=== PATIENT | male | born 1950 | race African-American/Black ===

== ENCOUNTER 2016-06-25 10:20 | Inpatient (IN) | payer OTHER ==
[~2016-06-25] VITALS: Ht 167.6 cm; Wt 118.0 kg
[~2016-06-25 10:20] MED LIST: ADULT LOW DOSE81 M1 PO; AMLODIPINE BESY10 MG PO; ASPIR-LOW81 MG PO; AUGMENTIN875 MG PO; Apresoline PO; Aspirin E.C. PO; BESIVANCE5 ML LEFT EYE; BESIVANCE5 ML OP; CALCIUM ACETAT667 MG PO; CLARITIN,ALAVAR10 MG PO; GENTAMICIN SULF30 GM; KETOROLAC 0.5% LEFT EYE; KETOROLAC TROMET5 ML LEFT EYE; LIPITOR20 MG PO; LO-DOSE ASPIRIN81 M1 PO; LOPRESSOR25 MG PO; Lopressor PO; METOPROLOL SUCC50 MG PO; NEPHRO-VITE,1 TABLET PO; NEURONTIN300 MG PO; NORVASC10 MG PO; NORVASC5 MG PO; Nephro-Vite,Rena-Vit PO; Norvasc PO; OMEPRAZOLE20 M2 PO; PHOSLYRA667 MG/5 M PO; PLAVIX75 MG PO; PRED FORTE100 DROP/5 LEFT EYE; PRILOSEC OTC20 M1 PO; PRILOSEC20 MG PO; Phoslo PO; Pred Forte 1%,Omnipr LEFT EYE; RENVELA2.4 GM PO; RENVELA800 MG PO; SENSIPAR30 MG PO; Sensipar PO; TYLENOL ARTHRI650 M2 PO; VICODIN,LORT1 TABLET PO; Vicodin; ZEMPLAR5 MCG/ML IV; Zantac PO
[2016-06-25 12:04] LABS: HEMATOCRIT 41.2 % (38.0-50.0); MCH 30.7 PG (29.0-34.0); MCHC 32.3 G/DL (30.0-36.0); MCV 95.2 FL (86-99); MEAN PLAT.VOLUME 12.1 uM^3 (9.0-12.4); PLATELET COUNT 203 K/uL (156-360); RBC DIS.WIDTH-CV 15.4 % (11.8-14.6); RBC DIS.WIDTH-SD 51.3 % (39-53); RED BLOOD COUNT 4.33 M/uL (4.00-5.50); WHITE BLOOD COUNT 9.4 K/uL (4.1-10.2)
[2016-06-25 12:17] LABS: CHLORIDE 97 mEq/L (99-109); POTASSIUM 5.9 mEq/L (3.7-5.4); SODIUM 139 mEq/L (136-147)
[2016-06-25 12:19] LABS: GLUCOSE 153 mg/dL (70-99)
[2016-06-25 12:20] LABS: ANION GAP 22 MEQ/L (2-14)
[2016-06-25 12:23] LABS: GFR ESTIMATE (CALCULATED) 5 mL/min/; UREA NITROGEN (BUN) 64 mg/dL (9-23)
[2016-06-25 12:27] LABS: TROP-I INTERPRETATION NEGATIVE; TROPONIN-I 0.25 ng/mL (0.0-0.30)
[2016-06-25] MEDS ORDERED: ATORVASTATIN CA20 MG PO (13:43)
[2016-06-25] MEDS ORDERED: PLAVIX75 MG PO (13:43)
[2016-06-25] MEDS ORDERED: ADVIL200 MG PO (13:44)
[2016-06-25] MEDS ORDERED: LOPRESSOR25 MG PO (13:44)
[2016-06-25 19:37] VITALS: BP 120/57
[2016-06-25 21:09] VITALS: BP 90/50
[2016-06-25 21:16] LABS: TROP-I INTERPRETATION NEGATIVE; TROPONIN-I 0.27 ng/mL (0.0-0.30)
[2016-06-26] VITALS (7 sets, daily range): BP systolic 78–123; BP diastolic 45–64
[2016-06-26 05:39] LABS: HEMATOCRIT 37.9 % (38.0-50.0); MCH 29.2 PG (29.0-34.0); MCHC 30.1 G/DL (30.0-36.0); MCV 97.2 FL (86-99); MEAN PLAT.VOLUME 12.1 uM^3 (9.0-12.4); PLATELET COUNT 173 K/uL (156-360); RBC DIS.WIDTH-CV 15.8 % (11.8-14.6); RBC DIS.WIDTH-SD 55.8 % (39-53); WHITE BLOOD COUNT 7.4 K/uL (4.1-10.2)
[2016-06-26 05:57] LABS: ANION GAP 18 MEQ/L (2-14); CHLORIDE 100 MEQ/L (99-109); GFR ESTIMATE (CALCULATED) 9 mL/min/; GLUCOSE 202 mg/dL (70-99); POTASSIUM 4.8 MEQ/L (3.7-5.4); SAMPLE HEMOLYSIS CHECK 0; SAMPLE ICTERIC CHECK 0; SAMPLE LIPEMIA CHECK 0; SODIUM 137 MEQ/L (136-147); UREA NITROGEN (BUN) 38 mg/dL (9-23)
[2016-06-26 05:58] LABS: TROP-I INTERPRETATION NEGATIVE; TROPONIN-I 0.25 ng/mL (0.0-0.30)
[2016-06-26 22:22] LABS: POINT-OF-CARE METER ID UU13113725
[2016-06-27 02:44] VITALS: BP 117/61
[2016-06-27 07:21] LABS: ALKALINE PHOSPHATASE 56 IU/L (3-129); ANION GAP 20 MEQ/L (2-14); CHLORIDE 99 MEQ/L (99-109); GFR ESTIMATE (CALCULATED) 7 mL/min/; GLUCOSE 127 mg/dL (70-99); SAMPLE HEMOLYSIS CHECK 0; SAMPLE ICTERIC CHECK 0; SAMPLE LIPEMIA CHECK 0; SODIUM 141 MEQ/L (136-147); TOTAL BILIRUBIN 0.7 MG/DL (0.0-1.0); UREA NITROGEN (BUN) 47 mg/dL (9-23)
[2016-06-27 09:07] LABS: EOSINOPHIL (%) 1.1 % (0-5); EOSINOPHIL COUNT 0.1 K/uL (0-0.3); IMMATURE GRANULOCYTE (%) 0.4 % (0.0-0.7); LYMPHOCYTE COUNT 1.4 K/uL (1.0-2.8); MCH 29.7 PG (29.0-34.0); MCHC 30.8 G/DL (30.0-36.0); MCV 96.4 FL (86-99); MEAN PLAT.VOLUME 12.5 uM^3 (9.0-12.4); MONOCYTE (%) 11.2 % (3-12); MONOCYTE COUNT 1.2 K/uL (0-0.8); NEUTROPHIL (%) 73.2 % (45-76); NEUTROPHIL COUNT 7.6 K/uL (1.8-6.4); PLATELET COUNT 173 K/uL (156-360); RBC DIS.WIDTH-SD 55.4 % (39-53); RED BLOOD COUNT 3.84 M/uL (4.00-5.50); WHITE BLOOD COUNT 10.4 K/uL (4.1-10.2)
[2016-06-27 12:11] VITALS: BP 116/63
[2016-06-27 15:03] LABS: BASE EXCESS -2.8 mEq/L (-3 to +3); CARBOXY HGB 2.1 % (0-5); METHEMOGLOBIN 1.5 % (0-1.5); PO2 53 mm Hg (80-100); pH 7.44 (7.35-7.45)
[2016-06-27 15:04] LABS: BICARBONATE 20.4 mEq/L (22-26); COMMENTS - BLOOD GASES NEG A+C+; PCO2 30 mm Hg (35-45); SITE RR
[2016-06-27 15:05] LABS: DEVICE ROOM AIR; TOTAL RESP RATE 23 resp/min
[2016-06-27 16:07] VITALS: BP 112/68
[2016-06-27 19:38] VITALS: BP 132/66
[2016-06-27 20:57] LABS: POINT-OF-CARE METER ID UU13113725
[2016-06-27 22:49] VITALS: BP 121/64
[2016-06-28 03:15] VITALS: BP 110/56
[2016-06-28 06:50] LABS: EOSINOPHIL COUNT 0.1 K/uL (0-0.3); HEMATOCRIT 36.3 % (38.0-50.0); IMMATURE GRANULOCYTE (%) 0.3 % (0.0-0.7); LYMPHOCYTE COUNT 1.6 K/uL (1.0-2.8); MCH 31.6 PG (29.0-34.0); MCHC 32.8 G/DL (30.0-36.0); MCV 96.5 FL (86-99); MEAN PLAT.VOLUME 12.8 uM^3 (9.0-12.4); MONOCYTE (%) 11.2 % (3-12); MONOCYTE COUNT 1.3 K/uL (0-0.8); NEUTROPHIL (%) 73.8 % (45-76); NEUTROPHIL COUNT 8.9 K/uL (1.8-6.4); NRBC (%) 0.5 /100 WBC (0-0); PLATELET COUNT 180 K/uL (156-360); RBC DIS.WIDTH-CV 15.8 % (11.8-14.6); RBC DIS.WIDTH-SD 55.1 % (39-53); RED BLOOD COUNT 3.76 M/uL (4.00-5.50)
[2016-06-28 07:25] LABS: ALKALINE PHOSPHATASE 63 IU/L (3-129); ANION GAP 20 MEQ/L (2-14); CHLORIDE 98 MEQ/L (99-109); GLUCOSE 106 mg/dL (70-99); POTASSIUM 5.2 MEQ/L (3.7-5.4); SAMPLE HEMOLYSIS CHECK 0; SAMPLE ICTERIC CHECK 0; SAMPLE LIPEMIA CHECK 0; SODIUM 138 MEQ/L (136-147); TOTAL BILIRUBIN 0.8 MG/DL (0.0-1.0); UREA NITROGEN (BUN) 38 mg/dL (9-23)
[2016-06-28 07:28] LABS: GFR ESTIMATE (CALCULATED) 9 mL/min/
[2016-06-28 08:09] VITALS: BP 123/60
[2016-06-28 11:07] LABS: POINT-OF-CARE METER ID UU13113725
[2016-06-28 12:00] VITALS: BP 122/56
[2016-06-28 14:33] LABS: INFLUENZA A VIRAL ANTIGEN NEGATIVE; INFLUENZA B VIRAL ANTIGEN NEGATIVE
[2016-06-28 17:07] VITALS: BP 121/60
[2016-06-28 19:33] VITALS: BP 130/61
[2016-06-28 22:33] VITALS: BP 106/59
[2016-06-29 03:10] VITALS: BP 117/56
[2016-06-29 06:24] LABS: EOSINOPHIL (%) 3.5 % (0-5); EOSINOPHIL COUNT 0.3 K/uL (0-0.3); HEMATOCRIT 37.7 % (38.0-50.0); IMMATURE GRANULOCYTE (%) 0.6 % (0.0-0.7); IMMATURE GRANULOCYTE COUNT 0.1 K/uL; LYMPHOCYTE COUNT 0.8 K/uL (1.0-2.8); MCH 30.9 PG (29.0-34.0); MCHC 31.8 G/DL (30.0-36.0); MCV 97.2 FL (86-99); MONOCYTE COUNT 1.1 K/uL (0-0.8); NEUTROPHIL (%) 74.4 % (45-76); NEUTROPHIL COUNT 6.7 K/uL (1.8-6.4); PLATELET COUNT 173 K/uL (156-360); RBC DIS.WIDTH-CV 15.9 % (11.8-14.6); RBC DIS.WIDTH-SD 54.9 % (39-53); RED BLOOD COUNT 3.88 M/uL (4.00-5.50)
[2016-06-29 06:50] LABS: ALKALINE PHOSPHATASE 56 IU/L (3-129); ANION GAP 20 MEQ/L (2-14); CHLORIDE 97 MEQ/L (99-109); GLUCOSE 121 mg/dL (70-99); POTASSIUM 4.4 MEQ/L (3.7-5.4); SAMPLE HEMOLYSIS CHECK 0; SAMPLE ICTERIC CHECK 0; SAMPLE LIPEMIA CHECK 0; SODIUM 138 MEQ/L (136-147); UREA NITROGEN (BUN) 47 mg/dL (9-23)
[2016-06-29 06:51] LABS: GFR ESTIMATE (CALCULATED) 7 mL/min/; TOTAL BILIRUBIN 0.6 MG/DL (0.0-1.0)
[2016-06-29 09:21] VITALS: BP 117/58
[2016-06-29 16:13] LABS: POINT-OF-CARE METER ID UU13113725
[2016-06-29 16:47] VITALS: BP 115/55
[2016-06-29 19:09] VITALS: BP 110/55
[2016-06-29 20:56] LABS: POINT-OF-CARE METER ID UU13113725
[2016-06-29 22:49] VITALS: BP 102/55
[2016-06-30 03:47] VITALS: BP 115/58
[2016-06-30 07:52] VITALS: BP 124/59
[2016-06-30 11:18] LABS: POINT-OF-CARE METER ID UU13113725
== END 2016-06-30 14:10 | disposition left against medical advice (07) | DRG 193 ==
LOC: EME 10:20 → 5EAST 14:19 → EDOF 14:19 → 5EAST 18:28
PROVIDERS: Nurse Practitioner Adult Health; Pediatrics
PROC: 5A1D60Z (ICD-10-PCS; principal; 2016-06-25)
DX: J18.9 Pneumonia, unspecified organism (principal); I12.0 Hypertensive chronic kidney disease with stage 5 chronic kidney disease or end stage renal disease; N18.6 End stage renal disease; Z99.2 Dependence on renal dialysis; E87.5 Hyperkalemia; E87.70 Fluid overload, unspecified; E66.9 Obesity, unspecified; Z68.41 Body mass index [BMI] 40.0-44.9, adult; Z91.15 Patient's noncompliance with renal dialysis; I95.9 Hypotension, unspecified; I35.0 Nonrheumatic aortic (valve) stenosis; I45.9 Conduction disorder, unspecified; R73.9 Hyperglycemia, unspecified; G89.29 Other chronic pain; R00.8 Other abnormalities of heart beat; K21.9 Gastro-esophageal reflux disease without esophagitis; R94.31 Abnormal electrocardiogram [ECG] [EKG]; E78.5 Hyperlipidemia, unspecified; M19.90 Unspecified osteoarthritis, unspecified site; I25.2 Old myocardial infarction; Z89.511 Acquired absence of right leg below knee; Z89.512 Acquired absence of left leg below knee
CPT/HCPCS: 36600; 70360; 71020; 80048; 80053; 82803; 82948; 83605; 84484; 85025; 85025 91; 85027; 87040; 87502; 93005; 94799; 97530 GO; 97530 GP; 99281; 99284; J0696; J1644; J1815; J2405; J2543; J3370; J7040; J7050; S0028

== ENCOUNTER 2016-07-10 08:47 | Emergency (ER) | payer OTHER ==
[~2016-07-10] VITALS: Ht 175.3 cm; Wt 108.9 kg
[~2016-07-10 08:47] MED LIST changes: +ADVIL200 MG PO; +ATORVASTATIN CA20 MG PO
[2016-07-10 10:17] LABS: HEMATOCRIT 42.8 % (38.0-50.0); MCH 31.1 PG (29.0-34.0); MCHC 32.2 G/DL (30.0-36.0); MCV 96.4 FL (86-99); MEAN PLAT.VOLUME 12.1 uM^3 (9.0-12.4); PLATELET COUNT 219 K/uL (156-360); RBC DIS.WIDTH-CV 15.8 % (11.8-14.6); RBC DIS.WIDTH-SD 53.5 % (39-53); RED BLOOD COUNT 4.44 M/uL (4.00-5.50); WHITE BLOOD COUNT 11.3 K/uL (4.1-10.2)
[2016-07-10 10:24] LABS: CHLORIDE 99 mEq/L (99-109); SODIUM 143 mEq/L (136-147)
[2016-07-10 10:26] LABS: GLUCOSE 141 mg/dL (70-99)
[2016-07-10 10:27] LABS: ANION GAP 18 MEQ/L (2-14)
[2016-07-10 10:29] LABS: GFR ESTIMATE (CALCULATED) 7 mL/min/
[2016-07-10 10:30] LABS: UREA NITROGEN (BUN) 33 mg/dL (9-23)
[2016-07-10] MEDS ORDERED: NYAMYC60 GM TP (11:09)
[2016-07-10] MEDS ORDERED: LEVAQUIN500 MG PO (11:13)
[2016-07-10 12:08] VITALS: BP 122/62
== END 2016-07-10 12:40 | disposition home or self-care (01) ==
LOC: EME → EDBD 08:47 → EME 12:40
PROVIDERS: Nurse Practitioner Family
DX: L30.9 Dermatitis, unspecified (principal); I12.0 Hypertensive chronic kidney disease with stage 5 chronic kidney disease or end stage renal disease; N18.6 End stage renal disease; Z89.511 Acquired absence of right leg below knee; Z89.512 Acquired absence of left leg below knee; Z99.2 Dependence on renal dialysis; E11.9 Type 2 diabetes mellitus without complications; K21.9 Gastro-esophageal reflux disease without esophagitis; Z86.14 Personal history of Methicillin resistant Staphylococcus aureus infection
CPT/HCPCS: 72192; 80048; 85027